=== PATIENT | male | born 1960 | race African-American/Black ===

== ENCOUNTER 2023-05-22 11:20 | Emergency (ER) | payer OTHER, MEDICAID ==
[~2023-05-22] VITALS: Ht 177.8 cm; Wt 100.0 kg
[2023-05-22 11:32] VITALS: O2SAT 100
[2023-05-22] MEDS ORDERED: DOXY100T2 MT (11:48)
[2023-05-22 12:40] LABS: CLARITY URINE CLEAR (CLEAR); COLOR URINE DARK YELLOW (YELLOW); GLUCOSE URINE NEGATIVE (NEGATIVE); KETONES URINE NEGATIVE (NEGATIVE); LEUKOCYTE ESTERASE URINE NEGATIVE (NEGATIVE); NITRITE URINE NEGATIVE (NEGATIVE); OCCULT BLOOD URINE NEGATIVE (NEGATIVE); PH URINE 5.5 (4.5-8.0); PROTEIN URINE TRACE (NEGATIVE); SPECIFIC GRAVITY URINE 1.029 (1.005-1.030)
[2023-05-22 12:43] LABS: BACTERIA URINE NONE SEEN; RBC URINE NONE SEEN /hpf (0-2); SQUAMOUS EPITHELIAL CELL URINE NONE SEEN /lpf (RARE/1+); YEAST URINE NONE SEEN
[2023-05-22 12:56] VITALS: BP 134/86; PULSE 64; RESP 18; TEMP 98.2
[2023-05-22 13:33] LABS: WBC URINE 0-2 /hpf (0-2)
[2023-05-24 05:11] LABS: HIV SCREEN 4G Non Reactive (Non Reactive)
== END 2023-05-22 12:58 | disposition home or self-care (01) ==
LOC: ER 12:04
DX: A53.9 Syphilis, unspecified (principal)
CPT/HCPCS: 81003; 86780; 87389; 99283

== ENCOUNTER 2024-06-01 21:33 | Emergency (ER) | payer MEDICAID ==
[~2024-06-01] VITALS: Ht 175.3 cm; Wt 80.0 kg
[~2024-06-01 21:33] MED LIST: DOXY100T2 MT
[2024-06-01 21:37] VITALS: TEMP 98.8; O2SAT 99
[2024-06-01] MEDS ORDERED: NAPR-679 MT (22:43)
[2024-06-01] MEDS ORDERED: TOPUD MT (22:43)
[2024-06-01] MEDS ORDERED: CYCL5TAB MT (22:43)
[2024-06-01] MEDS ORDERED: LIDO700A15 TP (22:43)
[2024-06-01 22:45] VITALS: BP 98/67; PULSE 109; RESP 16
[2024-06-01] MEDS: KETOROLAC 30MG/ML VIAL IM ONE (22:45)
[2024-06-01] MEDS: CYCLOBENZAPRINE 10MG TABLET PO ONE (22:45)
[2024-06-01] MEDS: LIDOCAINE 5% PATCH TOP SCH (22:45)
== END 2024-06-02 00:20 | disposition home or self-care (01) ==
LOC: ER 21:33
DX: S39.012A Strain of muscle, fascia and tendon of lower back, initial encounter (principal); I10 Essential (primary) hypertension; E78.00 Pure hypercholesterolemia, unspecified; Z79.899 Other long term (current) drug therapy; X58.XXXA Exposure to other specified factors, initial encounter; Y93.89 Activity, other specified; Y92.89 Other specified places as the place of occurrence of the external cause; Y99.8 Other external cause status
CPT/HCPCS: 99283; 96372; J1885

== ENCOUNTER 2024-06-11 09:20 | Emergency (ER) | payer MEDICAID ==
[~2024-06-11] VITALS: Ht 175.3 cm; Wt 77.0 kg
[~2024-06-11 09:20] MED LIST changes: +CYCL5TAB MT; +LIDO700A15 TP; +NAPR-679 MT; +TOPUD MT
[2024-06-11 09:24] VITALS: BP 130/92; PULSE 83; RESP 16; TEMP 97.8; O2SAT 96
[2024-06-11] MEDS ORDERED: LORAZEPAM 2MG/ML INJ IM ONE (10:30)
[2024-06-11] MEDS ORDERED: OLANZAPINE 10 MG/VIAL IM ONE (10:30)
== END 2024-06-11 10:20 | disposition left against medical advice (07) ==
LOC: ER 09:30
DX: R44.1 Visual hallucinations (principal); E78.00 Pure hypercholesterolemia, unspecified; I10 Essential (primary) hypertension; Z79.899 Other long term (current) drug therapy
CPT/HCPCS: 99283

== ENCOUNTER 2024-06-24 00:59 | Emergency (ER) | payer MEDICAID ==
[~2024-06-24] VITALS: Ht 172.7 cm; Wt 78.0 kg
[2024-06-24 01:02] VITALS: BP 150/88; PULSE 100; TEMP 98.1; O2SAT 99
[2024-06-24] MEDS ORDERED: DOXY100T28 MT (01:51)
[2024-06-24 02:00] VITALS: RESP 18
[2024-06-24] MEDS: DOXYCYCLINE HYCLATE 100MG CAPSULE PO ONE (02:15)
[2024-06-24] MEDS: CEFTRIAXONE SODIUM 500MG VIAL IM ONE (02:15)
== END 2024-06-24 02:01 | disposition home or self-care (01) ==
LOC: ER 00:59
DX: S00.511A Abrasion of lip, initial encounter (principal); I10 Essential (primary) hypertension; E78.00 Pure hypercholesterolemia, unspecified; Z79.1 Long term (current) use of non-steroidal anti-inflammatories (NSAID); Z79.899 Other long term (current) drug therapy; X58.XXXA Exposure to other specified factors, initial encounter; Y93.89 Activity, other specified; Y92.89 Other specified places as the place of occurrence of the external cause; Y99.8 Other external cause status
CPT/HCPCS: 96372; 99283; J0696; Z7610

== ENCOUNTER 2024-07-22 16:44 | Emergency (ER) | payer MEDICAID ==
[~2024-07-22] VITALS: Ht 170.2 cm; Wt 75.0 kg
[~2024-07-22 16:44] MED LIST changes: -CYCL5TAB MT; +CYCL5TAB3 MT; +DOXY100T28 MT
[2024-07-22 16:51] VITALS: O2SAT 98
[2024-07-22 19:16] VITALS: BP 138/80; PULSE 80; RESP 16; TEMP 37.00296; O2SAT 99
== END 2024-07-22 19:23 | disposition home or self-care (01) ==
LOC: ER 16:54
DX: F15.90 Other stimulant use, unspecified, uncomplicated (principal); E78.00 Pure hypercholesterolemia, unspecified; I10 Essential (primary) hypertension; F17.200 Nicotine dependence, unspecified, uncomplicated; A64 Unspecified sexually transmitted disease
CPT/HCPCS: 99283

== ENCOUNTER 2024-08-03 01:28 | Emergency (ER) | payer MEDICAID ==
[~2024-08-03] VITALS: Ht 177.8 cm; Wt 75.0 kg
[2024-08-03 01:32] VITALS: O2SAT 98
[2024-08-03] MEDS: DIPHENHYDRAMINE 25MG CAPSULE PO ONE (02:18)
[2024-08-03] MEDS: LORAZEPAM 0.5MG TABLET PO ONE ×2 (02:18→06:37)
[2024-08-03 04:05] LABS: BASOPHILS % 0.2 % (0.0-2.0); EOSINOPHILS % 0.7 % (0.0-5.0); HEMATOCRIT. 41.2 % (42.0-52.0); HEMOGLOBIN. 13.7 g/dL (14.0-18.0); LYMPHOCYTES % 13.2 % (20.0-50.0); MEAN CORPUSCULAR HEMOGLOBIN 28.8 pg (28.0-32.0); MEAN CORPUSCULAR HGB CONC 33.3 g/dL (31.0-37.0); MEAN CORPUSCULAR VOLUME 86.5 fL (80.0-94.0); MEAN PLATELET VOLUME 7.3 fl (7.4-10.4); MONOCYTES % 9.4 % (2.0-8.0); NEUTROPHILS % 76.5 % (40.0-76.0); PLATELET 291 x1000/uL (130-400); RED BLOOD CELL COUNT 4.76 mill/uL (4.7-6.1); RED CELL DISTRIBUTION WIDTH 14.5 % (11.6-14.6); WHITE BLOOD COUNT 9.8 x1000/uL (4.5-11.0)
[2024-08-03 04:11] LABS: CHLORIDE 104 mEq/L (98-107); POTASSIUM 3.9 mEq/L (3.5-5.1); SODIUM 140 mEq/L (136-145)
[2024-08-03 04:12] LABS: CALCIUM 10.3 mg/dL (8.7-10.4); CARBON DIOXIDE 24 mEq/L (21-32)
[2024-08-03 04:16] LABS: UREA NITROGEN BLOOD 27 mg/dL (9-23)
[2024-08-03 04:17] LABS: CREATININE 1.3 mg/dL (0.6-1.3); GLUCOSE 94 mg/dL (70-105)
[2024-08-03 04:19] LABS: ACETAMINOPHEN < 2 ug/mL (10-30); ALANINE AMINOTRANSFERASE 48 IU/L (10-49); ALBUMIN 4.7 g/dL (3.2-4.8); ASPARTATE AMINOTRANSFERASE 97 IU/L (<34); BILIRUBIN DIRECT 0.4 mg/dL (<=3.0); BILIRUBIN TOTAL 1.2 mg/dL (0.1-1.0); PROTEIN TOTAL 8.3 g/dL (6.0-8.3)
[2024-08-03 04:22] LABS: ETHANOL BLOOD < 10 mg/dL (<10)
[2024-08-03 06:37] LABS: CLARITY URINE CLEAR (CLEAR); COLOR URINE YELLOW (YELLOW); GLUCOSE URINE NEGATIVE (NEGATIVE); KETONES URINE 1+ (NEGATIVE); LEUKOCYTE ESTERASE URINE NEGATIVE (NEGATIVE); NITRITE URINE NEGATIVE (NEGATIVE); OCCULT BLOOD URINE NEGATIVE (NEGATIVE); PH URINE 5.5 (4.5-8.0); PROTEIN URINE NEGATIVE (NEGATIVE); SPECIFIC GRAVITY URINE 1.012 (1.005-1.030); UROBILINOGEN URINE 0.2 E.U./dL (0.2-1.0)
[2024-08-03 06:44] LABS: *AMPHETAMINES SCREEN URINE PRESUMPTIVE POSITIVE (NEGATIVE); *BARBITURATES SCREEN URINE NEGATIVE (NEGATIVE); *BENZODIAZEPINES SCREEN URINE NEGATIVE (NEGATIVE); *COCAINE SCREEN URINE PRESUMPTIVE POSITIVE (NEGATIVE); CANNABINOID URINE SCREEN NEGATIVE (NEGATIVE); ECSTASY MDMA SCREEN URINE CONF.TEST INDICATED (NEGATIVE); METHADONE URINE SCREEN NEGATIVE (NEGATIVE); OPIATES URINE SCREEN NEGATIVE (NEGATIVE); PHENCYCLIDINE URINE SCREEN NEGATIVE (NEGATIVE)
[2024-08-03 14:49] VITALS: BP 130/75; PULSE 67; RESP 16; TEMP 36.89184; O2SAT 99
== END 2024-08-03 15:58 ==
LOC: ER 01:28
DX: R44.1 Visual hallucinations (principal); F15.90 Other stimulant use, unspecified, uncomplicated; R20.2 Paresthesia of skin; Z00.00 Encounter for general adult medical examination without abnormal findings; Z79.899 Other long term (current) drug therapy
CPT/HCPCS: 80076; 80305; 80048; 81003; 80307; 80329; 80320; 85025; 36415; 99285; Q0163; G0480